=== PATIENT | female | born 1990 | race Caucasian/White ===

== ENCOUNTER 2016-12-23 10:55 | Outpatient (CLI) | payer OTHER, MEDICAID ==
--- NOTE | 2016-12-23 12:40 | Non Stress Test Report ---
Non Stress Test Datetime Report Generated by CPN: 12/23/2016 12:39 DEMOGRAPHIC EGA NST: 38.6 INDICATION Indication for Study: Ordered by Provider MONITORING Monitor Explained: Monitor Explained; Test Explained; Patient Verbalized Understanding Time on Monitor: 12/23/2016 11:11 Time off Monitor: 12/23/2016 12:15 NST Duration: 64 NST INTERVENTIONS NST Interventions: None Physician Notified NST: Dr. Lozano BABY A: [id number] BABY A Movement : Present Contraction Frequency : rare FHR Baseline : 125 Accelerations : 15X15 Decelerations : None Variability : Moderate 6-25bpm NST Review: Meets Criteria for Reactive NST NST Review and Verified By : Cheryl Balderasavabetty RNC NST Results: Reactive NST REPORT Report Trigger: Send Report
== END 2016-12-23 12:15 | disposition home or self-care (01) ==
LOC: LC 10:55
PROVIDERS: ATTEND Obstetrics & Gynecology
PROC: 4A1HXCZ Monitoring of Products of Conception, Cardiac Rate, External Approach (ICD-10-PCS; principal; 2016-12-23)
DX: Z34.93 Encounter for supervision of normal pregnancy, unspecified, third trimester (principal)
CPT/HCPCS: 59025

== ENCOUNTER 2016-12-24 06:48 | Inpatient (IN) | payer OTHER, MEDICAID ==
[~2016-12-24 06:48] MED LIST: CEFAZOLIN 1 GM/D5W RTU 1 GM/50 ML RTUPB IV PRN
[2016-12-24 07:26] LABS: ABSOLUTE LYMPHOCYTES (AUTO) 1.5 10^3/uL (0.5-4.7); ABSOLUTE MONOCYTES (AUTO) 0.9 10^3/uL (0.1-1.4); ABSOLUTE NEUT (AUTO) 7.9 10^3/uL (1.7-8.2); BASOPHILS % (AUTO) 0.2 % (0-2); EOSINOPHILS % (AUTO) 0.2 % (0-6); HEMATOCRIT 32.5 % (36.0-47.0); HEMOGLOBIN 10.8 g/dL (12.0-15.5); HGB HCT DIFFERENCE -0.1; LYMPHOCYTES % (AUTO) 14.4 % (13-45); MEAN CORPUSCULAR HEMOGLOBIN 30.8 pg (27.0-33.4); MEAN CORPUSCULAR HGB CONC 33.3 g/dL (32.0-36.0); MEAN CORPUSCULAR VOLUME 93 fl (80-97); MONOCYTES % (AUTO) 8.6 % (3-13); RED BLOOD COUNT 3.51 10^6/uL (3.72-5.28); RED CELL DISTRIBUTION WIDTH 16.6 % (11.5-14.0); SEGMENTED NEUTROPHILS % (AUTO) 76.6 % (42-78); WHITE BLOOD COUNT 10.3 10^3/uL (4.0-10.5)
[2016-12-24 07:44] LABS: APPEARANCE,URINE CLEAR; BILIRUBIN,URINE NEGATIVE (NEGATIVE); GLUCOSE, URINE NEGATIVE (NEGATIVE); KETONES,URINE NEGATIVE (NEGATIVE); LEUKOCYTE ESTERASE,URINE NEGATIVE (NEGATIVE); NITRITE,URINE NEGATIVE (NEGATIVE); PROTEIN,URINE NEGATIVE (NEGATIVE); URINE SPECIFIC GRAVITY 1.011; UROBILINOGEN,URINE NEGATIVE mg/dL (<2.0)
[2016-12-24 08:02] LABS: URINE BARBITURATES SCREEN NEGATIVE; URINE METHADONE SCREEN NEGATIVE; URINE OPIATES LOW NEGATIVE; URINE PHENCYCLIDINE SCREEN NEGATIVE
[2016-12-25] MEDS ORDERED: CEFAZOLIN 1 GM/D5W RTU 1 GM/50 ML RTUPB IV PRN (10:23)
[2016-12-25] MEDS ORDERED: RINGERS SOLUTION,LACTATED 1,000 ML IV ONE (10:30)
[2016-12-25] MEDS ORDERED: RINGERS SOLUTION,LACTATED 1,000 ML IV PRN (10:30)
[2016-12-25] MEDS ORDERED: ONDANSETRON HCL INJ/PF 4 MG/2 ML SDV ONE (14:56)
[2016-12-25] MEDS ORDERED: EPHEDRINE SULFATE INJ 50 MG/1 ML AMPULE ONE (14:56)
[2016-12-25] MEDS ORDERED: MIDAZOLAM 2 MG/2 ML INJ ONE (14:56)
[2016-12-25] MEDS ORDERED: OXYTOCIN 10 UNIT/ML VIAL ONE (14:56)
[2016-12-25] MEDS ORDERED: FENTANYL CITRATE INJ/PF 100 MCG/2 ML AMPUL ONE ×2 (14:56→17:49)
[2016-12-25] MEDS ORDERED: OXYTOCIN/NORMAL SALINE 20 UNIT/1,000 ML RTUINJ ONE ×2 (14:56→16:38)
[2016-12-25] MEDS ORDERED: FENTANYL CITRATE INJ/PF 100 MCG/2 ML AMPUL IV PRN ×3 (15:06)
[2016-12-25] MEDS ORDERED: MEPERIDINE HCL/PF INJ 25 MG/1 ML DISP.SYRIN IV PRN (15:06)
[2016-12-25] MEDS ORDERED: DIPHENHYDRAMINE HCL 50 MG/ML VIAL IV PRN (15:06)
[2016-12-25] MEDS ORDERED: PROMETHAZINE HCL INJ 25 MG/1 ML VIAL IV PRN ×2 (15:06→18:52)
[2016-12-25] MEDS ORDERED: OXYCODONE-ACETAMINOPHEN 5-325 MG TABLET PO PRN ×2 (18:52)
[2016-12-25] MEDS ORDERED: MEASLES,MUMPS&RUBELLA VACC/PF 0.5 ML VIAL SUBCUT PRN (18:52)
[2016-12-25] MEDS ORDERED: SIMETHICONE 80 MG TAB.CHEW PO PRN (18:52)
[2016-12-25] MEDS ORDERED: OXYTOCIN/NORMAL SALINE 20 UNIT/1,000 ML RTUINJ IV PRN (18:52)
[2016-12-25] MEDS ORDERED: ACETAMINOPHEN 325 MG TABLET PO PRN (18:52)
[2016-12-25] MEDS ORDERED: DIPH/PERTUSS(ACELL)/TETANUS VAC/PF 0.5 ML SYR (>=10YO) IM PRN (18:52)
[2016-12-25] MEDS ORDERED: KETOROLAC TROMETHAMINE INJ/PF 30 MG/1 ML SDV ONE (19:12)
[2016-12-25] MEDS ORDERED: ACETAMINOPHEN INJ/PF 1000 MG/100 ML SDV IV ONE (20:15)
[2016-12-25] MEDS ORDERED: ACETAMINOPHEN 100 ML IV ONE (20:30)
[2016-12-25] MEDS ORDERED: KETOROLAC TROMETHAMINE INJ/PF 30 MG/1 ML SDV IV ONE (20:30)
[2016-12-25] MEDS: MORPHINE SULFATE 10 MG/ML INJ IV PRN (22:45)
[2016-12-26] MEDS: KETOROLAC TROMETHAMINE INJ/PF 30 MG/1 ML SDV IV SCH ×2 (02:24→11:12)
[2016-12-26] MEDS ORDERED: ACETAMINOPHEN 100 ML IV ONE (04:30)
[2016-12-26 05:04] LABS: HEMATOCRIT 28.3 % (36.0-47.0); HEMOGLOBIN 9.6 g/dL (12.0-15.5); HGB HCT DIFFERENCE 0.5; MEAN CORPUSCULAR HEMOGLOBIN 31.5 pg (27.0-33.4); MEAN CORPUSCULAR VOLUME 93 fl (80-97); RED BLOOD COUNT 3.06 10^6/uL (3.72-5.28); RED CELL DISTRIBUTION WIDTH 16.6 % (11.5-14.0)
[2016-12-26] MEDS ORDERED: ACETAMINOPHEN INJ/PF 1000 MG/100 ML SDV IV ONE (06:30)
[2016-12-26] MEDS ORDERED: ACETAMINOPHEN WITH CODEINE #3 TABLET ONE (06:49)
[2016-12-26] MEDS: ACETAMINOPHEN WITH CODEINE #3 TABLET PO PRN ×5 (08:30→23:38)
--- NOTE | 2016-12-26 09:18 | PDOC PROGRESS REPORT ---
Subjective-OB Subjective: Post Delivery Day: 26 year old. Denies any needs at this time Sitting up in chair, eating bkf, discussing pain medications she cannot take, not much relief from Tylenol # 3, IV morphine works, voiding, ambulating Physical Exam (OB) Vital Signs: Temp Pulse Resp BP Pulse Ox 97.8 F 90 16 112/69 99 12/26/16 08:24 12/26/16 08:24 12/26/16 08:24 12/26/16 08:24 12/26/16 08:24 Intake & Output 12/25/16 12/26/16 12/27/16 06:59 06:59 06:59 Intake Total 3375 Output Total 2900 1000 Balance 475 -1000 Weight 97.7 kg 97.7 kg - Dressing Removed: No Incision: Dressing - Lochia Lochia Amount: Small 10-25 ml Lochia Color: Rubra/Red - Abdomen Description: Tender, Soft, Round Hernia Present: No Fundal Description: Firm, Midline Fundal Height: u/u - u/2 Objective-Diagnostic Laboratory: 12/26/16 04:46 12/26/16 04:46 WBC 13.0 H RBC 3.06 L Hgb 9.6 L Hct 28.3 L MCV 93 MCH 31.5 MCHC 34.0 RDW 16.6 H Plt Count 113 L Assessment and Plan(PN) - Assessment and Plan (1) Herpes Is this a current diagnosis for this admission?: Yes (2) Anemia associated with acute blood loss Is this a current diagnosis for this admission?: Yes (3) Status post primary low transverse section Is this a current diagnosis for this admission?: Yes - Time Spent with Patient Time with patient: Less than 15 minutes - Disposition Anticipated Discharge: Home Within: within 48 hours
[2016-12-26] MEDS: MORPHINE SULFATE 10 MG/ML INJ IV PRN (09:36)
[2016-12-26] MEDS: DOCUSATE SODIUM 100 MG CAPSULE PO SCH ×2 (11:14→17:26)
[2016-12-26] MEDS: PRENATAL VITAMIN W-O CA NO5/FE FUMARATE/FA CAPSULE PO SCH (12:43)
[2016-12-26] MEDS ORDERED: METOCLOPRAMIDE HCL 10 MG TABLET PO PRN (13:45)
[2016-12-26] MEDS: IBUPROFEN 800 MG TABLET PO SCH ×2 (17:26→23:38)
[2016-12-26] MEDS: VALACYCLOVIR HCL 500 MG TABLET PO SCH (22:06)
[2016-12-27] MEDS: ACETAMINOPHEN WITH CODEINE #3 TABLET PO PRN ×5 (03:43→21:49)
[2016-12-27] MEDS: IBUPROFEN 800 MG TABLET PO SCH ×4 (06:42→23:49)
--- NOTE | 2016-12-27 09:58 | PDOC PROGRESS REPORT ---
Subjective-OB Subjective: Post Delivery Day: 26 year old. Denies any needs at this time Pt is doing well, no c/o, voiding, pain under control, does not want to be discharged today, cannot take care of herself and baby if she is in a nesting room Physical Exam (OB) Vital Signs: Temp Pulse Resp BP Pulse Ox 97.6 F 79 12 107/63 100 12/27/16 07:44 12/27/16 07:44 12/27/16 07:44 12/27/16 07:44 12/27/16 07:44 Intake & Output 12/26/16 12/27/16 12/28/16 06:59 06:59 06:59 Intake Total 3375 480 Output Total 2900 1003 Balance 475 -523 Weight 97.7 kg - PIH/Pre-Eclampsia DTR's: 2 + Clonus: Negative Headache: Absent Epigastric Pain: No Visual Changes: No - Dressing Removed: No Incision: Well Approximated Closure Type: Surgical Glue - Lochia Lochia Amount: Small 10-25 ml Lochia Color: Rubra/Red - Abdomen Description: Soft, Round Hernia Present: No Fundal Description: Firm, Midline Fundal Height: u/u - u/2 Objective-Diagnostic Laboratory: 12/26/16 04:46 Assessment and Plan(PN) - Assessment and Plan (1) Herpes Is this a current diagnosis for this admission?: Yes (2) Anemia associated with acute blood loss Is this a current diagnosis for this admission?: Yes (3) Status post primary low transverse section Is this a current diagnosis for this admission?: Yes - Time Spent with Patient Time with patient: Less than 15 minutes - Disposition Anticipated Discharge: Home Within: within 24 hours
[2016-12-27] MEDS: DOCUSATE SODIUM 100 MG CAPSULE PO SCH ×2 (10:41→17:13)
[2016-12-27] MEDS: ESCITALOPRAM OXALATE 10 MG TABLET PO SCH (10:41)
[2016-12-27] MEDS: FERROUS SULFATE 325 MG TABLET PO SCH (10:41)
[2016-12-27] MEDS: PRENATAL VITAMIN W-O CA NO5/FE FUMARATE/FA CAPSULE PO SCH (10:42)
[2016-12-27] MEDS: VALACYCLOVIR HCL 500 MG TABLET PO SCH ×2 (10:42→21:48)
[2016-12-28] MEDS: ACETAMINOPHEN WITH CODEINE #3 TABLET PO PRN ×3 (03:54→13:54)
[2016-12-28] MEDS: IBUPROFEN 800 MG TABLET PO SCH ×2 (06:14→11:43)
--- NOTE | 2016-12-28 09:14 | PDOC PROGRESS REPORT ---
Subjective-OB Subjective: Post Delivery Day: 26 year old. Denies any needs at this time Doing well, ready to go home, eating well, hsb at BS, pain under control, + gas Physical Exam (OB) Vital Signs: Temp Pulse Resp BP Pulse Ox 97.5 F 77 16 109/67 100 12/28/16 08:43 12/28/16 08:43 12/28/16 08:43 12/28/16 08:43 12/28/16 08:43 Intake & Output 12/27/16 12/28/16 12/29/16 06:59 06:59 06:59 Intake Total 480 120 Output Total 1003 Balance -523 120 - PIH/Pre-Eclampsia DTR's: 2 + Clonus: Negative Headache: Absent Epigastric Pain: No Visual Changes: No - Dressing Removed: Yes Incision: Open Closure Type: Sutures - Bilateral Tubal Ligation Site: Open, Well Approximated - Lochia Lochia Amount: Scant < 10 ml Lochia Color: Rubra/Red - Abdomen Description: Soft, Round Hernia Present: No Fundal Description: Firm Fundal Height: u/u - u/2 Objective-Diagnostic Laboratory: 12/26/16 04:46 Assessment and Plan(PN) - Assessment and Plan (1) Herpes Is this a current diagnosis for this admission?: Yes (2) Anemia associated with acute blood loss Is this a current diagnosis for this admission?: Yes (3) Status post primary low transverse section Is this a current diagnosis for this admission?: Yes - Time Spent with Patient Time with patient: Less than 15 minutes Medications reviewed and adjusted accordingly: Yes - Disposition Anticipated Discharge: Home Within: Other - home today
--- NOTE | 2016-12-28 09:17 | PDOC DISCHARGE SUMMARY ---
Final Diagnosis Discharge Date: 12/28/16 - Final Diagnosis (1) Herpes Is this a current diagnosis for this admission?: Yes (2) Anemia associated with acute blood loss Is this a current diagnosis for this admission?: Yes (3) Status post primary low transverse section Is this a current diagnosis for this admission?: Yes Discharge Data - Discharge Medication Home Medications: Pnv No.95/Ferrous Fum/Folic AC [ Formula] 1 each PO DAILY 12/23/16 Valacyclovir HCl [Valtrex 500 mg Tablet] 500 mg PO DAILY 12/23/16 Ascorbic Acid [Vitamin C 500 mg Tablet] 1 tab PO DAILY 12/24/16 Escitalopram Oxalate [Lexapro 10 mg Tablet] 10 mg PO DAILY 12/24/16 Esomeprazole Magnesium [Nexium 24Hr] 20 mg PO DAILY 12/24/16 Ferrous Sulfate [Iron] 65 mg PO DAILY 12/24/16 Omeprazole [Omeprazole] 40 mg PO DAILY 12/24/16 Acetaminophen with Codeine [Tylenol #3 Tablet] 1 each PO Q4HP PRN #30 tablet Escitalopram Oxalate [Lexapro 10 mg Tablet] 10 mg PO DAILY tablet 12/28/16 Ferrous Sulfate [Feosol 325 mg Tablet] 325 mg PO DAILY tablet 12/28/16 Reason(s) for Admission: Ceasarean Section-Primary Procedures: NST, Ultrasound Intrapartum Procedure(s): : Low Cervical, Transverse - Data Baby 1 Female Home with Mother: Yes Complications: No - Diagnosis Test Laboratory: Temp Pulse Resp BP Pulse Ox 97.5 F 77 16 109/67 100 12/28/16 08:43 12/28/16 08:43 12/28/16 08:43 12/28/16 08:43 12/28/16 08:43 12/24/16 12/24/16 12/26/16 07:13 07:15 04:46 RBC 3.51 L 3.06 L Hgb 10.8 L 9.6 L Hct 32.5 L 28.3 L Urine Opiates Screen NEGATIVE - Discharge information/Instructions Discharge Activity: Activity As Tolerated, No Lifting Over 10 Pounds, No Lifting /Push/Pulling, Pelvic Rest Discharge Diet: As Tolerated, Regular Disposition: HOME, SELF-CARE Follow up with: [facility] in: 1, Weeks
[2016-12-28] MEDS: PRENATAL VITAMIN W-O CA NO5/FE FUMARATE/FA CAPSULE PO SCH (09:31)
[2016-12-28] MEDS: FERROUS SULFATE 325 MG TABLET PO SCH (09:32)
[2016-12-28] MEDS: DOCUSATE SODIUM 100 MG CAPSULE PO SCH (09:32)
[2016-12-28] MEDS: VALACYCLOVIR HCL 500 MG TABLET PO SCH (09:32)
[2016-12-28] MEDS: ESCITALOPRAM OXALATE 10 MG TABLET PO SCH (09:32)
[2016-12-28 12:06] VITALS: BP 115/65
--- NOTE | 2016-12-30 10:56 | Admission Physical ---
Addendum: No updates or changes from 12/24/16 to 12/25/16 Datetime Report Generated by CPN: 12/30/2016 10:55 CURRENT ADMISSION Hx Assessment: The History has been Updated Chief Complaint: Scheduled Section Indication for Induction: Not Applicable Indication for Induction: Term, Intrauterine Admit Plan: Initiate Section Protocol ALLERGIES Medication Allergies: No Medication Allergies: iodine/SV/Swelling of Thr (09/13/2015); adhesive tape (12/23/2016) Medication Allergies: iodine/SV/Swelling of Thr (09/13/2015) Latex: No Latex Allergies OBSTETRICAL HISTORY EDC: 12/31/2016 00:00 : 4 Para: 1 SAB: 2 Livin Gestational Diabetes: Yes Rh Sensitization: No Incompetent Cervix: No KARO: No Infertility: No ART Treatment: No Uterine Anomaly: No IUGR: No Hx Previous C/S: No Macrosomia: No Hx Loss/Stillborn: No PIH: No Hx : No Placenta Previa/Abruption: No Depression/PP Depression: Yes PTL/PROM: No Post Hemorrhage: No Current Procedures: Ultrasound MEDICAL HISTORY Diabetes: Yes Diabetes Type: Gestational Diabetes Blood Transfusion: No Pulmonary Disease (Asthma, TB): No Breast Disease: No Hypertension: No 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 Surgery: No Heart Disease: No Hosp/Surgery: Yes Autoimmune Disorder: No Anesthetic Complications: No Kidney Disease: No Abnormal Pap Smear: No Neuro/Epilepsy: No Psychiatric Disorders: No Other Medical Diseases: No Hepatitis/Liver Disease: No Significant Family History: No Varicosities/Phlebitis: No Trauma/Violence : No Thyroid Dysfunction: No INFECTIOUS HISTORY Gonorrhea: No Genital Herpes: Yes Chlamydia: No Tuberculosis: No Syphilis: No Hepatitis: No HIV/AIDS Exposure: No Rash or Viral Illness: No HPV: No Infectious History Comments: BV PHYSICAL EXAM General: Normal HEENT: Normal Neurologic: Normal Thyroid: Normal Heart: Normal Lungs: Normal Breast: Deferred Back: Normal Abdomen: Normal Genitourinary Exam: Normal Extremities: Normal DTRs: Normal Pelvic Type: Adequate Physical Exam Comments: umbilical hernia Vital Signs: Reviewed MEMBRANES Membranes: Intact FETUS A Monitoring: External US FHR- Baseline: 120 Variability: Moderate 6-25bpm Accelerations: 15X15 Decelerations: None FHR Category: Category I Presentation: Vertex Admit Comment: 26yo at 39+0ega presents for scheduled C/S due to HSV outbreak that began yesterday. She is now on Vlatrex. c/b A1GDM and patient with history of appendectomy and partial bowel resection in 2012 - for endometriosis. Will make sure that Gen Surg is aware in case they are needed. Due to active outbreak she was scheduled for Primary C/S today. However at arrival she was eating protein bars and drinking water. After Discussion with anesthesia patient was rescheduled for 12/25 for Primary C/S for HSV outbreak. Pt is not currently in labor and reassuring FWB. CAT I NST. Anesthesia aware. H/o depression. PLANS FOR LABOR AND DELIVERY Pain Management: Spinal INFORMED CONSENT Informed Consent Obtained: Section Delivery; Risks, Benefits and Alternatives Discussed Signature: with User ID: [email or web address]
--- NOTE | 2017-02-11 11:12 | PDOC DELIVERY SUMMARY ---
Delivery Summary - Maternal Hx : IV Hx # Term Pregnancies: 2 Hx # Pregnancies: 0 Hx Total # of Abortions (Sponateous & Elective): 3 FRED: 12/31/16 Gestational Age: 39+1 Risk Factors: Other - active HSV outbreak Ruptured Membranes: AROM Time of Rupture: 15:58 Fluids: Clear - Delivery Labor: Not In Labor Presentation: Vertex Heart Rate Monitoring: Done Pre-Operatively Support Person Present: Yes Location: OR : Scheduled, Primary Placenta: Within Normal Limits Delivery of Placenta Date: 12/25/16 Delivery of Placenta Time: 16:01 - Medications Type of Anesthesia:: Spinal - Infant Assess and Care Baby 1 Female Delivery of Infant Date: 12/25/16 Delivery of Time: 16:00 at 1 minute: 7 at 5 minutes: 7 Preprinted Number On Band: [id number] Skin to Skin: No To Nursery At: 16:09 Mode of Transport: [facility] - Delivery Personnel Nursery RN: DANGELO ALICEA RN Nursery RN: YELITZA RN: TEZ NAYLOR MD: GABI KHAN
--- NOTE | 2017-02-11 12:12 | OPERATIVE REPORT E ---
Operative Report NAME: AC TAYLOR : 1990 AGE: 26Y DATE OF SURGERY: 12/25/2016 ROOM: 222 PREOPERATIVE DIAGNOSES: 1. IUP AT 39 WEEKS AND 1 DAY. 2. ACTIVE HSV BREAKOUT. POSTOPERATIVE DIAGNOSES: 1. IUP AT 39 WEEKS AND 1 DAY. 2. ACTIVE HSV BREAKOUT. OPERATION: Primary . SURGEON: GABI KHAN M.D. ANESTHESIA: Dr. Hurt with a spinal. ESTIMATED BLOOD LOSS: 600 mL. FINDINGS: Female infant with Apgars of 8 and 9. Weight 8 pounds 5 ounces, 20-1/2 inches long. PROCEDURE IN DETAIL: Patient was taken to the operating room, prepared and draped in normal sterile fashion in the supine position with a leftward tilt. A transverse skin incision was made with the scalpel and carried through to the underlying layer of fascia. With the same scalpel, the fascia was excised in the midline and extended laterally with Coon's. The fascia was dissected from the rectus muscle bluntly. The rectus muscle was divided and the peritoneal cavity was entered bluntly with surgeon finger fracture with good visualization of the bladder and the uterus. A bladder blade was inserted. The hysterotomy was nicked in the center with a scalpel and extended laterally with surgeon finger fracture. The infant was then delivered atraumatically. The nose and mouth were suctioned with a suction bulb and the cord was clamped and cut, and handed off to awaiting pediatricians. The cord blood was collected and the placenta was removed manually. The uterus was exteriorized and cleared of clots and debris. The hysterotomy was closed with 0-Monocryl in a running locked fashion. A second layer of the same suture was used to imbricate to ensure hemostasis. The uterus was returned to the abdomen. The peritoneal cavity was cleared of clots and debris. The rectus muscle were reapproximated with a mattress stitch of 2-0 Chromic. The fascia was closed with 0 Vicryl. The subcutaneous layer was closed with plain catgut and the skin was closed with 4-0 Vicryl. The patient tolerated the procedure well. Sponge, lap and needle counts were correct x2. Patient was taken to recovery in stable condition. DICTATING PHYSICIAN: GABI KHAN M.D. [id number] PHY#: [id number] ID: [id number] JOB#: [id number] ACCT: [id number] cc:GABI KHAN M.D. >
== END 2016-12-28 17:35 | disposition home or self-care (01) | DRG 765 ==
LOC: UNDOADMIN 06:48 → 2S 06:48 → UNDODISIN 09:35 → 2S 12-25 09:26
PROVIDERS: ADMIT Obstetrics & Gynecology; ATTEND Obstetrics & Gynecology
PROC: 4A1HXCZ Monitoring of Products of Conception, Cardiac Rate, External Approach (ICD-10-PCS; 2016-12-25)
PROC: 10D00Z1 Extraction of Products of Conception, Low, Open Approach (ICD-10-PCS; principal; 2016-12-25 12:30)
DX: O98.32 Other infections with a predominantly sexual mode of transmission complicating childbirth (principal); D62 Acute posthemorrhagic anemia; O34.211 Maternal care for low transverse scar from previous cesarean delivery; A60.04 Herpesviral vulvovaginitis; O24.429 Gestational diabetes mellitus in childbirth, unspecified control; O99.02 Anemia complicating childbirth; O99.344 Other mental disorders complicating childbirth; F32.9 Major depressive disorder, single episode, unspecified; Z3A.39 39 weeks gestation of pregnancy; Z37.0 Single live birth
CPT/HCPCS: 1961; 36415; 80307; 81001; 82962; 85025; 85027; 86850; 86900; 86901; 94799; J0131; J1885; J2250; J2270; J2405; J2590; J3010; J3490; J7120